=== PATIENT | female | born 1980 | race Caucasian/White ===

== ENCOUNTER → 2021-05-08 | Outpatient (CLI) | payer BC ==
[~2021-05-08] MED LIST: ALBUTEROL0.09 MG/A1 INH; BACTRIM DS 8001 TA1 PO; EPI EZ PEN1 MG/ML IM; EPI-PEN1 MG/ML MR; LIPITOR10 MG PO; MOTRIN600 MG PO; PREDNISONE20 M1 PO; SYNTHROID,LEVOTHROID
== END ==
LOC: COVID19 15:37
PROVIDERS: ATTEND Student in an Organized Health Care Education/Training Program
DX: Z11.52 Encounter for screening for COVID-19 (principal); Z20.822 Contact with and (suspected) exposure to COVID-19